=== PATIENT | male | born 1990 | race Caucasian/White ===

== ENCOUNTER 2017-06-14 10:35 | Emergency (ER) | payer SELFPAY ==
[2017-06-14 10:47] VITALS: BP 141/89
[2017-06-14] MEDS ORDERED: cephALEXin 250 MG CAPSULE PO STA (10:59)
[2017-06-14] MEDS ORDERED: cephALEXin 250 MG CAPSULE PO ONE (11:09)
--- NOTE | 2017-06-14 11:13 | ED Physician Documentation ---
PD HPI SKIN - Stated complaint Stated Complaint: BUTTOCK PX - Chief complaint Chief Complaint: Wound - History obtained from History obtained from: Patient - History of Present Illness Timing - onset: How many months ago (2) Timing - duration: Months (2) Timing - details: Still present, Waxing and waning Location: Other ("butt cheek") Quality / character: Painful, Draining Associated symptoms: No: Fever Similar symptoms before: No diagnosis - Additional information Additional information: The patient is a 27-year-old male who complains of pus draining from his "butt cheek." He reports pain and swelling with intermittent drainage over the past 2 months. He states each time it comes back it gets worse. He denies fever, or injection drug use. He denies history of MRSA. 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 Review of Systems Constitutional: denies: Fever Nose: denies: Congestion Throat: denies: Sore throat Cardiac: denies: Chest pain / pressure Respiratory: denies: Dyspnea, Cough GI: denies: Abdominal Pain, Nausea, Vomiting : denies: Dysuria Skin: reports: Lesions Musculoskeletal: denies: Back pain, Joint pain Neurologic: denies: Focal weakness, Numbness, Headache PD PAST MEDICAL HISTORY - Past Medical History Cardiovascular: None Respiratory: None Neuro: None Endocrine/Autoimmune: None GI: None - Present Medications Home Medications: Ambulatory Orders Medication Instructions Recorded Confirmed Mupirocin 1 gm TP BID #1 tu 06/14/17 cephALEXin [Cephalexin] 500 mg PO TID #20 tablet 06/14/17 - Allergies Allergies/Adverse Reactions: Allergies Allergy/AdvReac Type Severity Reaction Status Date / Time No Known Drug Allergies Allergy Verified 06/14/17 10:47 - Social History Does the pt smoke?: No Smoking Status: Never smoker - Immunizations Immunizations are current?: Yes PD ED PE NORMAL - Vitals Vital signs reviewed: Yes (Initially hypertensive.) - General General: Alert and oriented X 3, Well developed/nourished - HEENT HEENT: Atraumatic, Moist mucous membranes, Pharynx benign - Neck Neck: No adenopathy - Cardiac Cardiac: RRR - Respiratory Respiratory: No respiratory distress - Abdomen Abdomen: Soft, Non tender - Back Back: No CVA TTP, No spinal TTP - Derm Derm: No rash, Other (There is a slightly erythematous, slightly swollen, tender area in the superior aspect of the gluteal fold slightly to the left of midline.) - Extremities Extremities: No edema - Neuro Neuro: Alert and oriented X 3, No motor deficit, Normal speech Results - Vitals Vitals: Oxygen O2 Source Room air PD MEDICAL DECISION MAKING - ED course Complexity details: considered differential, d/w patient ED course: The patient's presentation is significant for a perianal abscess that has spontaneously drained. Attempt to aspirate, revealed no purulent drainage. He is being discharged with prescription for cephalexin and for mupirocin cream. Cephalexin 500 mg administered while in the emergency department. I discussed with him the diagnosis, symptomatic and antibiotic treatment, outpatient follow- up, as well as potentially worrisome signs or symptoms that should prompt reevaluation in the emergency department. Departure - Departure Disposition: 01 Home, Self Care Clinical Impression: Abscess Condition: Stable Instructions: ED Rebekah Anal Abscess Abx Only Follow-Up: [facility] [Provider Group] Prescriptions: cephALEXin [Cephalexin] 500 mg PO TID #20 tablet Mupirocin 1 gm TP BID #1 tu Comments: Take cephalexin 3 times daily as prescribed. Clean the affected area with warm soapy water at least twice daily. Apply mupirocin cream after washing the area. Follow-up with primary physician within 2 weeks. Call to schedule appointment. Return to the emergency department if you develop increasing swelling, increasing pain, or otherwise worsening symptoms. Discharge Date/Time: 06/14/17 11:20
== END 2017-06-14 11:20 | disposition home or self-care (01) ==
LOC: ED 10:35
DX: L02.31 Cutaneous abscess of buttock (principal)
CPT/HCPCS: 99283; A9270